=== PATIENT | female | born 1940 | race Caucasian/White ===

== ENCOUNTER 2021-07-27 13:37 | Emergency (ER) | payer MEDICARE, OTHER | END 2021-07-27 20:20 | disposition home or self-care (01) | LOC: ER1 13:37 | DX: S09.90XA Unspecified injury of head, initial encounter (principal); S13.9XXA Sprain of joints and ligaments of unspecified parts of neck, initial encounter; S70.01XA Contusion of right hip, initial encounter; E78.5 Hyperlipidemia, unspecified; I10 Essential (primary) hypertension; W01.10XA Fall on same level from slipping, tripping and stumbling with subsequent striking against unspecified object, initial encounter | CPT/HCPCS: 70450; 71045; 72125; 73502; 73552; 93005; 99284 ==